=== PATIENT | male | born 2000 | race Caucasian/White ===

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

== ENCOUNTER 2019-06-05 08:26 | Inpatient (IN) | payer MEDICAID ==
[~2019-06-05] VITALS: Ht 170.2 cm; Wt 82.0 kg
[2019-06-05] VITALS (12 sets, daily range): BP systolic 93–132; BP diastolic 43–66; Ht 170.2 cm; Wt 82.0 kg
[2019-06-05 09:20] LABS: BASOPHILS 0.2 % (0-2); EOSINOPHILS 0.1 % (0-7); HEMATOCRIT 46.7 % (42.0-54.0); HEMOGLOBIN 16.1 g/dL (13.5-17.5); IMMATURE GRANULOCYTES 0.4 % (0-5); LYMPHOCYTES 13.4 % (15-50); MCH 30.8 pg (26.0-34.0); MCHC 34.5 g/dL (31.0-37.0); MCV 89.3 fL (80.0-100.0); MEAN PLATELET VOLUME 10.2 fL (7.4-10.4); MONOCYTES 2.7 % (2-11); NEUTROPHILS 83.2 % (40-80); PLATELET COUNT 200 10x3/uL (130-400); RBC 5.23 10x6/uL (4.20-6.10); RDW 11.8 % (11.5-14.5); WBC 14.2 10x3/uL (4.8-10.8)
[2019-06-05 09:42] LABS: ALBUMIN 3.9 g/dL (3.4-5.0); ALKALINE PHOSPHATASE 78 U/L (30-120); ALT (SGPT) 17 U/L (10-68); BILIRUBIN - TOTAL 1.67 mg/dL (0.2-1.3); CALCIUM 8.9 mg/dL (8.5-10.1); CARBON DIOXIDE 14.4 mmol/L (21.0-32.0); CHLORIDE - SERUM 93 mmol/L (98-107); CREATININE - SERUM 1.2 mg/dL (0.6-1.3); POTASSIUM - SERUM 4.5 mmol/L (3.5-5.1); PROTEIN - SERUM 7.1 g/dL (6.4-8.2); SODIUM 131 mmol/L (136-145); UREA NITROGEN 16 mg/dL (7-18); eGFR NON AFRICAN AMERICAN 82 mL/min (90-120)
[2019-06-05 09:48] LABS: CALC OSMOLALITY 287 mosm/kg (275-300)
[2019-06-05 09:50] LABS: BILIRUBIN NEGATIVE (NEGATIVE); GLUCOSE 1000 mg/dL (NEGATIVE); KETONE 3+ mg/dL (NEGATIVE); NITRITE NEGATIVE (NEGATIVE); SPECIFIC GRAVITY 1.015 (1.005-1.020); UROBILINOGEN NORMAL (NORMAL)
[2019-06-05 09:50] LABS: GLUCOSE 537 mg/dL (74-106)
[2019-06-05 13:05] LABS: CALC OSMOLALITY 286 mosm/kg (275-300); CALCIUM 9.2 mg/dL (8.5-10.1); CARBON DIOXIDE 10.8 mmol/L (21.0-32.0); CHLORIDE - SERUM 96 mmol/L (98-107); CREATININE - SERUM 1.3 mg/dL (0.6-1.3); MAGNESIUM - SERUM 1.8 mg/dL (1.8-2.4); SODIUM 133 mmol/L (136-145); UREA NITROGEN 15 mg/dL (7-18); eGFR NON AFRICAN AMERICAN 75 mL/min (90-120)
[2019-06-05 13:10] LABS: GLUCOSE 464 mg/dL (74-106)
[2019-06-05 16:28] LABS: ANION GAP 21.9 mmol/L (8-16); CREATININE - SERUM 1.4 mg/dL (0.6-1.3); POTASSIUM - SERUM 4.3 mmol/L (3.5-5.1)
[2019-06-05 16:29] LABS: CARBON DIOXIDE 17.4 mmol/L (21.0-32.0)
[2019-06-05 20:00] LABS: CALC OSMOLALITY 280 mosm/kg (275-300); CALCIUM 9.2 mg/dL (8.5-10.1); CARBON DIOXIDE 20.9 mmol/L (21.0-32.0); CHLORIDE - SERUM 104 mmol/L (98-107); CREATININE - SERUM 1.3 mg/dL (0.6-1.3); MAGNESIUM - SERUM 2.1 mg/dL (1.8-2.4); POTASSIUM - SERUM 4.4 mmol/L (3.5-5.1); SODIUM 139 mmol/L (136-145); UREA NITROGEN 14 mg/dL (7-18); eGFR NON AFRICAN AMERICAN 75 mL/min (90-120)
[2019-06-05 20:03] LABS: GLUCOSE 130 mg/dL (74-106)
--- NOTE | 2019-06-05 21:04 | MORECARE ---
CASE MANAGEMENT DISCHARGE SUMMARY PATIENT: JULIA VELOZ UNIT: [id number] ADM DATE: 06/05/19 AGE: 19 : 99 SEX: M ROOM/BED: D.2309 AUTHOR: DAKSHA MARKHAM PHYSICIAN: REFERRING PHYSICIAN: GEO DANIELLE MD DATE OF SERVICE: 06/05/19 Discharge Plan Patient Name: JULIA [facility]ELOZ [facility] [facility] 2000 Planned Disposition: Home Anticipated Discharge Date: Discharge Date: Expected LOS: Initial Reviewer: [email or web address] Initial Review Date: 06/05/2019 Generated: 06/05/19 10:03 pm DCPIA - Discharge Planning Initial Assessment Updated by [email or web address]: Kait Jacome on 06/05/19 9:01 pm * Is the patient Alert and Oriented? Yes * How many steps to enter\exit or inside your home? * PCP NO PCP * [facility] * Preadmission Environment Home with Family * ADLs Independent * Equipment None * List name and contact numbers for known caregivers / representatives who currently or will assist patient after discharge: REINA VILLAGRAN - GIRLFRIEND - [phone] * Verbal permission to speak to the caregivers and representatives has been obtained from the patient. N/A * Community resources currently utilized None * Additional services required to return to the preadmission environment? No * Can the patient safely return to the preadmission environment? Yes * Has this patient been hospitalized within the prior 30 days at any hospital? No Patient Name: JULIA VELOZ Page 86412 at 2104 All edits/amendments must be made on the electronic document DICTATION DATE: 06/05/192102 FIRST OFFICER AND FLIGHT INSTRUCTOR: JOHNY 06/05/192102 RPT#: [id number] DC DATE: STATUS: ADM IN [facility] [address] [place] [address] END OF REPORT
[2019-06-06] VITALS (23 sets, daily range): BP systolic 90–120; BP diastolic 48–76
[2019-06-06 03:29] LABS: BASOPHILS 0.2 % (0-2); EOSINOPHILS 0.7 % (0-7); HEMATOCRIT 42.1 % (42.0-54.0); HEMOGLOBIN 14.4 g/dL (13.5-17.5); IMMATURE GRANULOCYTES 0.1 % (0-5); LYMPHOCYTES 35.4 % (15-50); MCH 30.5 pg (26.0-34.0); MCHC 34.2 g/dL (31.0-37.0); MCV 89.2 fL (80.0-100.0); MEAN PLATELET VOLUME 9.5 fL (7.4-10.4); MONOCYTES 7.9 % (2-11); NEUTROPHILS 55.7 % (40-80); PLATELET COUNT 232 10x3/uL (130-400); RBC 4.72 10x6/uL (4.20-6.10); RDW 11.9 % (11.5-14.5); WBC 13.4 10x3/uL (4.8-10.8)
[2019-06-06 04:37] LABS: CALC OSMOLALITY 273 mosm/kg (275-300); CARBON DIOXIDE 19.1 mmol/L (21.0-32.0); CHLORIDE - SERUM 105 mmol/L (98-107); CREATININE - SERUM 1.2 mg/dL (0.6-1.3); GLUCOSE 83 mg/dL (74-106); MAGNESIUM - SERUM 1.8 mg/dL (1.8-2.4); PHOSPHOROUS 3.2 mg/dL (2.5-4.9); POTASSIUM - SERUM 3.9 mmol/L (3.5-5.1); SODIUM 138 mmol/L (136-145); UREA NITROGEN 11 mg/dL (7-18); eGFR NON AFRICAN AMERICAN 82 mL/min (90-120)
[2019-06-07] VITALS (14 sets, daily range): BP systolic 92–127; BP diastolic 55–87
[2019-06-07 09:54] LABS: CALCIUM 8.6 mg/dL (8.5-10.1); CHLORIDE - SERUM 104 mmol/L (98-107); GLUCOSE 142 mg/dL (74-106); SODIUM 141 mmol/L (136-145); eGFR NON AFRICAN AMERICAN > 90 mL/min (90-120)
[2019-06-07 09:55] LABS: CALC OSMOLALITY 278 mosm/kg (275-300); CARBON DIOXIDE 27.6 mmol/L (21.0-32.0); UREA NITROGEN 2 mg/dL (7-18)
[2019-06-07] MEDS ORDERED: Lantus Insulin SC (13:29)
--- NOTE | 2019-06-07 14:29 | MORECARE ---
CASE MANAGEMENT DISCHARGE SUMMARY PATIENT: JULIA VELOZ UNIT: [id number] ADM DATE: 06/05/19 AGE: 19 : 99 SEX: M ROOM/BED: D.2309 AUTHOR: SHAHRZAD,DOC PHYSICIAN: REFERRING PHYSICIAN: GEO DANIELLE MD DATE OF SERVICE: 06/07/19 Discharge Plan Patient Name: JULIA VELOZ Facility: [facility]:[place] : 2000 Planned Disposition: Home Anticipated Discharge Date: 06/07/19 Discharge Date: Expected LOS: 2 Initial Reviewer: [email or web address] Initial Review Date: 06/05/2019 Generated: 06/07/19 3:29 pm Comments DCP- Discharge Planning Updated by [email or web address]: Mickie Taylor on 06/07/19 1:[address] Patient Name: JULIA VELOZ Encounter No: [id number] : 2000 Primary Insurance: MEDICAID [place] Anticipated DC Date: Planned Disposition: Home External Planned Provider: : DCP follow-up note: CM spoke with patient about DC plan. Patient states he will get his Lantus and insulin filled. Stated he does not have a primary care physician, and Dr. Torrez was unable to provide refills. Stated he was waiting until he had insurance through work, so that he could afford his diabetic medication and supplies. States he lives with his girl friend Emre and she will provide transportation upon DC. Denies any other needs at this time. Mickie Taylor MSN,RN,CM DCP- Discharge Planning Updated by [email or web address]: Kait Jacome on 06/05/19 8:[address] Patient Name: JULIA VELOZ Admission Status: ER Accout number: [id number] Admission Date: 06-05-2019 : 2000 Admission Diagnosis: Attending: GEO DANIELLE Current LOS: 1 Anticipated DC Date: Planned Disposition: Home Primary Insurance: MEDICAID [place] Discharge Planning Comments: CM met with patient to complete initial dc planning assessment. CM educated patient on the CM role and verbal consent given by patient to complete assessment. Patient lives at home with his girlfriend. At discharge patient plans to return home and feels this is a safe discharge. CM discussed availability of home health, rehab services, and medical equipment. CM explained that [facility] has glucometer for less than $20 with 50 test strips. Patient denied known discharge needs at this time. CM will continue to follow and will assist as needed with dc plans/needs. Production Machine Tender: Kait Jacome DCPIA - Discharge Planning Initial Assessment Updated by [email or web address]: Kait Jacome on 06/05/19 9:01 pm * Is the patient Alert and Oriented? Yes * How many steps to enter\exit or inside your home? * PCP NO PCP * [facility] * Preadmission Environment Home with Family * ADLs Independent * Equipment None * List name and contact numbers for known caregivers / representatives who currently or will assist patient after discharge: REINA VILLAGRAN - GIRLFRIEND - [phone] * Verbal permission to speak to the caregivers and representatives has been obtained from the patient. N/A * Community resources currently utilized None * Additional services required to return to the preadmission environment? No * Can the patient safely return to the preadmission environment? Yes * Has this patient been hospitalized within the prior 30 days at any hospital? No Last DP export: 06/05/19 8:04 p Patient Name: JULIA VELOZ Page 15606 at 1429 All edits/amendments must be made on the electronic document DICTATION DATE: 06/07/191428 PRE PRESS OPERATOR: JOHNY 06/07/191428 RPT#: [id number] DC DATE: STATUS: ADM IN [facility] [address] [place] [address] END OF REPORT
--- NOTE | 2019-06-09 09:09 | MORECARE ---
CASE MANAGEMENT DISCHARGE SUMMARY PATIENT: JULIA VELOZ UNIT: [id number] ADM DATE: 06/05/19 AGE: 19 : [birth year] SEX: M ROOM/BED: D.2309 AUTHOR: SHAHRZAD,DOC PHYSICIAN: REFERRING PHYSICIAN: GEO DANIELLE MD DATE OF SERVICE: 06/09/19 Discharge Plan Patient Name: JULIA VELOZ Facility: [facility]:[place] : 2000 Planned Disposition: Home Anticipated Discharge Date: 06/07/19 Discharge Date: 06/07/2019 Expected LOS: 2 Initial Reviewer: [email or web address] Initial Review Date: 06/05/2019 Generated: 06/09/19 10:08 am Comments DCP- Discharge Planning Updated by [email or web address]: Mickie Taylor on 06/07/19 1:[address] Patient Name: JULIA VELOZ Encounter No: [id number] : 2000 Primary Insurance: MEDICAID [place] Anticipated DC Date: Planned Disposition: Home External Planned Provider: : DCP follow-up note: CM spoke with patient about DC plan. Patient states he will get his Lantus and insulin filled. Stated he does not have a primary care physician, and Dr. Torrez was unable to provide refills. Stated he was waiting until he had insurance through work, so that he could afford his diabetic medication and supplies. States he lives with his girl friend Emre and she will provide transportation upon DC. Denies any other needs at this time. Mickie Taylor MSN,RN,CM DCP- Discharge Planning Updated by [email or web address]: Kait Jacome on 06/05/19 8:[address] Patient Name: JULIA VELOZ Admission Status: ER Accout number: [id number] Admission Date: 06-05-2019 : 2000 Admission Diagnosis: Attending: GEO DANIELLE Current LOS: 1 Anticipated DC Date: Planned Disposition: Home Primary Insurance: MEDICAID [place] Discharge Planning Comments: CM met with patient to complete initial dc planning assessment. CM educated patient on the CM role and verbal consent given by patient to complete assessment. Patient lives at home with his girlfriend. At discharge patient plans to return home and feels this is a safe discharge. CM discussed availability of home health, rehab services, and medical equipment. CM explained that [facility] has glucometer for less than $20 with 50 test strips. Patient denied known discharge needs at this time. CM will continue to follow and will assist as needed with dc plans/needs. Vascular Ultrasound Technologist: Kait Jacome DCPIA - Discharge Planning Initial Assessment Updated by [email or web address]: Kait Jacome on 06/05/19 9:01 pm * Is the patient Alert and Oriented? Yes * How many steps to enter\exit or inside your home? * PCP NO PCP * [facility] * Preadmission Environment Home with Family * ADLs Independent * Equipment None * List name and contact numbers for known caregivers / representatives who currently or will assist patient after discharge: REINA VILLAGRAN - GIRLFRIEND - [phone] * Verbal permission to speak to the caregivers and representatives has been obtained from the patient. N/A * Community resources currently utilized None * Additional services required to return to the preadmission environment? No * Can the patient safely return to the preadmission environment? Yes * Has this patient been hospitalized within the prior 30 days at any hospital? No Last DP export: 06/07/19 1:29 p Patient Name: JULIA VELOZ Page 31200 at 0909 All edits/amendments must be made on the electronic document DICTATION DATE: 06/09/19907 SPORTSPERSONS: JOHNY 06/09/19907 RPT#: [id number] DC DATE:06/07/19 STATUS: DIS IN [facility] [address] [place] [address] END OF REPORT
== END 2019-06-07 15:07 | disposition home or self-care (01) | DRG 639 ==
LOC: D.ER 08:26 → D.ICU 10:20
PROVIDERS: Family Medicine; ADMIT Internal Medicine Nephrology; ATTEND Internal Medicine Nephrology
DX: E10.10 Type 1 diabetes mellitus with ketoacidosis without coma (principal); Z79.4 Long term (current) use of insulin; Z91.19 Patient's noncompliance with other medical treatment and regimen; I10 Essential (primary) hypertension